=== PATIENT | female | born 1970 | race Caucasian/White ===

== ENCOUNTER 2023-03-18 04:35 | Emergency (ER) | payer BC ==
[2023-03-18] MEDS ORDERED: Nitroglycerin 0.4 MG Tab.SL SL ONE (04:47)
[2023-03-18] MEDS ORDERED: Aspirin 81 MG Tab.Chew PO ONE (04:54)
[2023-03-18] MEDS ORDERED: Pantoprazole 40 MG Vial IVPUSH ONE (04:55)
[2023-03-18 05:06] LABS: BASOPHILS ABSOLUTE AUTO 0.06 K/uL (0.00-0.20); BASOPHILS PERCENT AUTO 0.6 % (0.0-2.0); EOSINOPHILS ABSOLUTE AUTO 0.05 K/uL (0.00-0.50); EOSINOPHILS PERCENT AUTO 0.5 % (0.0-5.0); HEMATOCRIT 39.7 % (34.0-46.0); HEMOGLOBIN 13.6 g/dL (11.7-15.5); LYMPHOCYTES ABSOLUTE AUTO 1.58 K/uL (0.50-3.50); LYMPHOCYTES PERCENT AUTO 15.9 % (10.0-50.0); MEAN CORPUSCULAR HEMOGLOBIN 28.5 pg (28.2-33.3); MEAN CORPUSCULAR HGB CONC 34.3 g/dL (31.7-36.0); MEAN CORPUSCULAR VOLUME 83.2 fL (84.0-98.0); NEUTROPHILS ABSOLUTE AUTO 7.65 K/uL (1.40-7.00); PLATELET COUNT,PLT 260 K/uL (150-350); RED BLOOD CELL COUNT 4.77 M/uL (3.77-5.09); RED CELL DISTRIBUTION WIDTH 13.1 % (11.2-14.1); WHITE BLOOD CELL COUNT,WBC 9.9 K/uL (4.0-10.2)
[2023-03-18] MEDS: Sodium Chloride 0.9% 10 ML Syringe FLUSH PRN ×3 (05:08→06:59)
[2023-03-18] MEDS ORDERED: Morphine 2 MG/ML SYRINGE IVPUSH ONE (05:11)
[2023-03-18] MEDS ORDERED: Ondansetron 4 MG/2 ML SDV IVPUSH ONE (05:12)
[2023-03-18 05:23] LABS: APPEARANCE,URINE CLEAR; BILIRUBIN,URINE NEGATIVE (NEGATIVE); COLOR,URINE YELLOW; GLUCOSE,URINE NEGATIVE (NEGATIVE); KETONES,URINE NEGATIVE (NEGATIVE); LEUKOCYTE ESTERASE,URINE NEGATIVE (NEGATIVE); NITRITE,URINE NEGATIVE (NEGATIVE); OCCULT BLOOD,URINE NEGATIVE (NEGATIVE); PH,URINE 6.5 (5.0-9.0); PROTEIN,URINE NEGATIVE (NEGATIVE); UROBILINOGEN,URINE 0.2 E.U./dL (0.2-1.0)
[2023-03-18] MEDS ORDERED: Sodium Chloride 0.45% 1,000 ML IV SCH (05:30)
[2023-03-18] MEDS ORDERED: Iopamidol 612 MG/ML 100 ML Bottle IVPUSH ONE (05:34)
[2023-03-18 05:36] LABS: ALBUMIN 3.7 g/dL (3.4-5.0); ANION GAP 10.1 meq/L (7-15); BILIRUBIN TOTAL 0.3 mg/dL (0.2-1.0); CALCIUM 9.4 mg/dL (8.5-10.1); CARBON DIOXIDE,CO2 25.9 mmol/L (21.0-32.0); CREATININE 0.86 mg/dL (0.51-1.17); EST CRCL DRUG DOSING (CG) 66.83 mL/min; MAGNESIUM 1.8 mg/dL (1.8-2.4); POTASSIUM,K 3.6 mmol/L (3.5-5.1); TSH ULTRASENSITIVE 3.724 mIU/mL (0.358-3.740)
[2023-03-18 05:37] LABS: INR 0.9; PROTHROMBIN TIME 9.3 SEC (9.0-11.1); PTT,PARTIAL THROMBOPLSTIN TIME 23.2 SEC (23.6-29.8)
[2023-03-18 05:38] LABS: AMYLASE 24 U/L (25-115); LIPASE 131 U/L (73-393)
[2023-03-18] MEDS: Sodium Chloride 0.9% 1,000 ML IV SCH ×2 (06:59→09:04)
[2023-03-18] MEDS ORDERED: Ondansetron 4 MG/2 ML SDV IVPUSH PRN (09:23)
[2023-03-18] MEDS ORDERED: Morphine 2 MG/ML SYRINGE IVPUSH PRN (09:23)
[2023-03-18 17:54] VITALS: BP 141/77; PULSE 68
== END 2023-03-18 18:30 ==
LOC: LL.ED 04:35
DX: K81.9 Cholecystitis, unspecified (principal); I10 Essential (primary) hypertension; J45.909 Unspecified asthma, uncomplicated; K21.9 Gastro-esophageal reflux disease without esophagitis; Z79.899 Other long term (current) drug therapy
CPT/HCPCS: 36415; 71045; 74177; 76705; 80053; 81003; 82150; 82550; 83605; 83690; 83735; 83880; 84443; 84484; 85025; 85379; 85610; 85730; 93005; 93010; 96361; 96374; 96375; 99284; 99285-25; A9270-GY; C9113; J2270; J2405; J3490; J7030; Q9967